=== PATIENT | female | born 1990 | race Caucasian/White ===

== ENCOUNTER 2019-09-09 08:49 | Emergency (ER) | payer OTHER ==
[2019-09-09 08:53] VITALS: BP 121/76; PULSE 75; TEMP 98.9; BMI 29.2
[2019-09-09] MEDS ORDERED: RABIES VACCINE (PCEC)/PF 2.5 UNIT/VIAL IM ONE ×2 (08:58→09:03)
== END 2019-09-09 09:18 | disposition home or self-care (01) ==
LOC: JER 08:49
PROC: 3E023GC Introduction of Other Therapeutic Substance into Muscle, Percutaneous Approach (ICD-10-PCS; principal; 2019-09-09)
DX: Z20.3 Contact with and (suspected) exposure to rabies (principal)
CPT/HCPCS: 90675; 99283-25

== ENCOUNTER 2020-04-16 08:52 | Emergency (ER) | payer OTHER ==
[2020-04-16 08:57] VITALS: BP 130/82; PULSE 78; TEMP 97.9; BMI 29.2
[2020-04-16] MEDS ORDERED: IBUPROFEN 600 MG TABLET (FP) PO ONE ×2 (09:16→09:22)
== END 2020-04-16 09:28 | disposition home or self-care (01) ==
LOC: JER 08:52 → JERFT 08:52
DX: R10.32 Left lower quadrant pain (principal)
CPT/HCPCS: 99283-25

== ENCOUNTER 2023-07-28 09:43 | Emergency (ER) | payer OTHER ==
[2023-07-28 09:52] VITALS: BP 127/52; PULSE 68; RESP 18; TEMP 98; BMI 31.3
[2023-07-28] MEDS ORDERED: IBUPROFEN 600 MG TABLET (FP) PO ONE (10:04)
[2023-07-28] MEDS: IBUPROFEN 600 MG TABLET (FP) PO ONE (10:06)
== END 2023-07-28 10:45 | disposition home or self-care (01) ==
LOC: JERFT 09:43
DX: M25.562 Pain in left knee (principal); W22.8XXA Striking against or struck by other objects, initial encounter
CPT/HCPCS: 73562-TC-LT-FY; 99283-25